=== PATIENT | male | born 1985 | race Caucasian/White ===

== ENCOUNTER 2024-04-29 02:43 | Outpatient (CLI) | payer OTHER, SELFPAY ==
--- NOTE | 2024-04-29 | DI.RAD_ITS ---
Exam(s) RF MODIFIED SPEECH BA SWALLOW EXAM: Modified barium swallow. CLINICAL HISTORY: Dysphagia. TECHNIQUE: Modified barium swallow was performed in conjunction with speech pathology. CONTRAST MATERIAL: Multiple consistencies of oral barium contrast were administered. COMPARISON: No exams were available for comparison FINDINGS: Note that this is not a dedicated esophagram, distal esophagus not evaluated. There is no evidence of aspiration or penetration with any consistency. No significant residue in th e vallecular or piriform sinuses. Speech pathology report to follow. IMPRESSION: No evidence of aspiration or penetration. RADIATION DOSE DELIVERED: juana Portillo=6.43 mGy
[2024-04-29] MEDS: Barium Sulfate 40% W/V 240 ML BTL PO (09:21)
[2024-04-29] MEDS: Barium Sulfate Oral Paste 40% W/V 230 ML TUBE PO ×2 (09:22→09:23)
[2024-04-29] MEDS: Barium Sulfate 700 MG TAB PO (09:24)
--- NOTE | 2024-04-29 12:11 | ST.MBS_ITS ---
Date of Service Date of service: 04/29/24 Time of Service: 09:00 Modified Barium Swallow Study Findings: Video fluoroscopic Swallowing Evaluation (VFSE) / Modified Barium Swallow Study (MBSS) Speech Language Pathology Report Patient referred for VFSE/MBSS from Dr. Mary Alba given dysphagia symptoms. HPI & Patient report of function: Patient is a 38 year old male with history of GERD on omeprazole 20mg, REGAN on CPAP, PTSD, TBIs, hx stomach ulcer who presents with approximate 2 year history of dysphagia to solids/particulate foods (nuts), gummy vitamins, and pills. He describes a specific location these items can stick in the upper mid section of his throat. He denies issues with softer solids or thin liquids, though does endorse globus/fullness sensation in throat frequently. Previous Imaging: - EGD 02/16/24: Normal esophagus biopsies, mild gastritis, small non-mucosal lesion, mid esophageal mild inflammation -CT of neck 08/04/23: No abnormalities with attention to R BOT region questioned during laryngoscopy -ENT/Nasolaryngoscopy (per patient, notes not available) no significant findings but questioned tissue on base of tongue (see above) -GI: Currently active with symptoms of urgency and diarrhea; awaiting workup to test for celiac disease, trying increased fiber intake IMPRESSIONS: Swallow function/safety/efficiency appears WFL. No evidence of oral pharyngeal dysphagia- sensory and motor function is WNL. On review of fluoroscopy, the patient's base of tongue region does appear slightly enlarged/meets the epiglottis at rest. Unfortunately his past ENT report is not available for review- his reported findings are above. Blas describes that his past ENT questioned enlarged tissue on the BOT and send him for a CT of the neck completed 08/04/23 which was unremarkable. This may represent anatomical difference, enlarged/inflammed lingual tonsil etc. but cannot be assessed on fluoroscopy. Recommend PCP review prior ENT notes/base of tongue work-up and consideration of re-referral/follow-up with ENT if indicated. Despite not being able to successfully recreate his symptoms during today's study, suspect his symptoms are most consistent with vallecular retention with particulate/gummy foods, as trace vallecular retention is appreciated intermittently during study. This could be result of above-described anatomical difference. With persistent globus sensation and suspected persistent reflux symptoms, refer ral to j2ee java developer may be beneficial for review of reflux diet. Education provided to patient re: [employer] findings, recommendations, results. RECOMMENDATIONS: Diet Texture Recommendation:? IDDSI LEVEL SOLIDS 7-Regular Solids. Add moisture to foods and always have a drink LIQUIDS 0-Thin Liquids MEDICATIONS Whole with sips liquid or consider taking in food Diet texture modification is per patient's preference; please adjust diet textures at patient's discretion & collaboration with care team. Do not alter medications (e.g., cut)? without advice from your MD or pharmacist. Risk Management Strategies:? Behavioral reflux precautions, including upright position during + 90 mins after meals. Small bites, approx [id number] Chew until applesauce consistency PLAN: No further [employer] needs identified OBJECTIVE Videofluoroscopic Swallow Evaluation (VFSE/MBSS) was conducted in the lateral and [id number] projection by Speech-Language Pathologist, in collaboration with Radiologist, to evaluate oropharyngeal swallow function. PO Barium Contrast Trials Oral barium water-soluble contrast was administered as follows: IDDSI Level 0 Varibar thin liquid (40% w/v) IDDSI Level 2 Varibar nectar thick/mildly thick liquid (40% w/v) IDDSI Level 4 Varibar pudding/pureed/extremely thick (40% w/v) IDDSI Level 7 Regular Solid: 1/2 tania cracker coated in 3 mL Varibar pudding 13 mm barium tablet taken with Thin Liquids. MBSImP Component Scores: COMPONENT Scale SCORE 1 Lip closure (0-4) 0 Resulted in no labial escape 2 Hold Position (0-3) 0 Maintained a cohesive bolus between tongue to palatal seal 3 Bolus Preparation (0-4) 0 Resulted in timely and efficient chewing and mashing 4 Bolus Transport (0-4) 0 Was with brisk tongue motion 5 Oral Residue (0-4) 0 Was not observed. There was complete oral clearance 6 Swallow Initiation (0-4) 0 Occurred as bolus head at posterior angle of the mandibular ramus 7 Soft Palate Elevation (0-4) 0 Resulted in no bolus between soft palate and the pharyngeal wall 8 Laryngeal Elevation (0-3) 0 Demonstrated complete superior movement of thyroid cartilage with complete approximation of arytenoids to epiglottic petiole 9 Anterior Hyoid Motion (0-2) 0 Demonstrated complete anterior movement 10 Epiglottic Movement (0-2) 0 Resulted in complete inversion 11 Laryngeal Closure (0-2) 0 Was complete with no air or contrast in laryngeal vestibule 12 Pharyngeal Stripping Wave (0-2) 0 Was present and complete 13 Pharyngeal Contraction (0-3) 0 Was complete 14 PES Opening (0-3) 0 Was completely distended and complete duration with no obstruction of flow 15 Tongue Base Retraction (0-4) 0 Allowed no contrast between the tongue base and posterior pharyngeal wall 16 Pharyngeal Residue (0-4) 1 Showed a trace within or on pharyngeal structures 17 Esophageal Clearance (0-4) 0 Was complete, with only a coating of contrast, if any Results: COMPONENT Scale SCORE 1 Oral Score (0-18) 0 2 Pharyngeal Score (0-29) 0 3 Esophageal Score (0-4) 0 Functional Oral Intake Scale: COMPONENT Scale SCORE 1 Pre-Study (1-7) 7 Total oral intake with no restrictions 2 Post-Study (1-7) 7 Total oral intake with no restrictions Penetration-Aspiration Scale: COMPONENT Scale SCORE 1 Thin liquid (1-8) 1 Contrast did not enter the airway 2 [place] thick (1-8) 1 Contrast did not enter the airway 3 Honey thick (1-8) NA 4 Pudding thick (1-8) 1 Contrast did not enter the airway 5 Cookie (1-8) 1 Contrast did not enter the airway EAT-10: COMPONENT Scale SCORE 1 My swallowing problem has caused me to lose weight (0-4) NA 2 My swallowing problem interferes with my ability to go out for meals (0-4) NA 3 Swallowing liquids takes extra effort (0-4) NA 4 Swallowing solids takes extra effort (0-4) NA 5 Swallowing pills takes extra effort (0-4) NA 6 Swallowing is painful (0-4) NA 7 The pleasure of eating is affected by my swallowing (0-4) NA 8 When I swallow food sticks in my throat (0-4) NA 9 I cough when I eat (0-4) NA 10 Swallowing is stressful (0-4) NA 11 Total (0-40) 0 A score of 3 or more indicates a problem Thank you for allowing us to take part in this patient's care. Please feel free to contact the [facility] Speech Language Pathology Department with any questions/concerns.
== END 2024-04-29 03:03 ==
PROVIDERS: PCP Physician Assistant; Visit Provider Student in an Organized Health Care Education/Training Program
DX: K21.9 Gastro-esophageal reflux disease without esophagitis (principal); R13.10 Dysphagia, unspecified
CPT/HCPCS: 92526; 74221